=== PATIENT | female | born 1985 | race Two or more races ===

== ENCOUNTER 2016-04-17 21:53 | Inpatient (IN) | payer OTHER ==
[~2016-04-17] VITALS: Ht 162.6 cm; Wt 62.1 kg
[2016-04-17 22:25] VITALS: BP 114/63
[2016-04-17 22:41] LABS: EOSINOPHIL (%) 0.1 % (0-5); HEMATOCRIT 33.8 % (36.0-46.0); IMMATURE GRANULOCYTE (%) 0.3 % (0.0-0.7); IMMATURE GRANULOCYTE COUNT 0.5 K/uL; LYMPHOCYTE COUNT 2.5 K/uL (1.0-2.8); MCH 27.6 PG (29.0-34.0); MCHC 33.4 G/DL (30.0-36.0); MCV 82.4 FL (83-99); MEAN PLAT.VOLUME 9.7 uM^3 (9.5-12.4); MONOCYTE COUNT 0.5 K/uL (0-0.8); NEUTROPHIL (%) 82.4 % (45-76); NEUTROPHIL COUNT 14.6 K/uL (1.8-6.4); PLATELET COUNT 350 K/uL (156-360); RBC DIS.WIDTH-CV 14.7 % (11.8-14.6); RBC DIS.WIDTH-SD 42.4 % (39-53); WHITE BLOOD COUNT 17.7 K/uL (4.1-10.2)
[2016-04-17 23:18] VITALS: BP 123/64
[2016-04-17 23:33] VITALS: BP 119/61
[2016-04-17 23:48] VITALS: BP 122/66
[2016-04-18 00:03] VITALS: BP 107/54
[2016-04-18 01:09] VITALS: BP 113/63
[2016-04-18 02:12] VITALS: BP 105/59
[2016-04-18 06:25] LABS: EOSINOPHIL (%) 0 % (0-5); HEMATOCRIT 31.5 % (36.0-46.0); IMMATURE GRANULOCYTE (%) 0.3 % (0.0-0.7); IMMATURE GRANULOCYTE COUNT 0.1 K/uL; LYMPHOCYTE COUNT 2.3 K/uL (1.0-2.8); MCH 26.5 PG (29.0-34.0); MCHC 31.7 G/DL (30.0-36.0); MCV 83.6 FL (83-99); MEAN PLAT.VOLUME 10.1 uM^3 (9.5-12.4); MONOCYTE (%) 5.1 % (3-12); MONOCYTE COUNT 0.9 K/uL (0-0.8); NEUTROPHIL (%) 81.3 % (45-76); PLATELET COUNT 265 K/uL (156-360); RBC DIS.WIDTH-CV 14.9 % (11.8-14.6); RBC DIS.WIDTH-SD 45.5 % (39-53); RED BLOOD COUNT 3.77 M/uL (3.80-5.20); WHITE BLOOD COUNT 17.2 K/uL (4.1-10.2)
[2016-04-18 07:07] VITALS: BP 124/62
[2016-04-18 15:44] VITALS: BP 92/51
[2016-04-18 22:45] VITALS: BP 110/69
[2016-04-19 07:36] VITALS: BP 91/52
[2016-04-19] MEDS ORDERED: IBUPROFEN800 MG PO (13:14)
[2016-04-19] MEDS ORDERED: Tylenol Extra Streng PO (13:14)
[2016-04-19 15:16] VITALS: BP 109/69
== END 2016-04-19 18:01 | disposition home or self-care (01) | DRG 775 ==
LOC: LDRP-OP 21:53 → 2WEST 21:54 → LDRP-OP 05-27 11:28
PROVIDERS: Advanced Practice Midwife
DX: O70.1 Second degree perineal laceration during delivery (principal); O69.1XX0 Labor and delivery complicated by cord around neck, with compression, not applicable or unspecified; Z37.0 Single live birth; Z3A.38 38 weeks gestation of pregnancy
CPT/HCPCS: 85025

== ENCOUNTER 2016-04-22 18:52 | Outpatient (CLI) | payer OTHER ==
[~2016-04-22] VITALS: Ht 160 cm; Wt 59.1 kg
[2016-04-22] VITALS (10 sets, daily range): BP systolic 120–147; BP diastolic 57–93
[~2016-04-22 18:52] MED LIST: IBUPROFEN800 MG PO; Tylenol Extra Streng PO
[2016-04-22] MEDS ORDERED: PERCOCET 5/31 TABLET PO (20:39)
== END 2016-04-22 22:11 | disposition home or self-care (01) ==
LOC: LDRP-OP 18:52 → 2WEST 18:53
PROC: 0HQ9XZZ Repair Perineum Skin, External Approach (ICD-10-PCS; principal; 2016-04-22)
DX: O90.1 Disruption of perineal obstetric wound (principal)
CPT/HCPCS: G0378; J1580; J1885; J2270; J7050